=== PATIENT | male | born 1955 | race Caucasian/White ===

== ENCOUNTER 2017-09-02 09:30 | Day surgery (SDC) | payer OTHER ==
[~2017-09-02 09:30] MED LIST: CEFAZOLIN 2 GM/50 ML (PMX) 50 ML IVPB
[2017-09-02] MEDS ORDERED: ONDANSETRON 4 MG INJ (10:42)
[2017-09-02] MEDS ORDERED: KETOROLAC 30 MG INJ (10:43)
[2017-09-02] MEDS ORDERED: DEXAMETHASONE 4 MG/ML 1 ML INJ (10:43)
[2017-09-02] MEDS ORDERED: METOCLOPRAMIDE 10 MG INJ (10:43)
[2017-09-02] MEDS ORDERED: ROCURONIUM 50 MG INJ (10:54)
[2017-09-02] MEDS ORDERED: PROPOFOL 20 ML (10:54)
[2017-09-02] MEDS ORDERED: FENTAnyl 50 MCG/ML VIAL (10:55)
[2017-09-02] MEDS ORDERED: MIDAZOLAM 1 MG/ML 2 ML INJ (10:55)
[2017-09-02] MEDS ORDERED: DIPHENHYDRAMINE 50 MG INJ IV (11:00)
[2017-09-02] MEDS ORDERED: HYDROmorphONE (0.2 MG/ML) 10ML SYG IV ×3 (11:00)
[2017-09-02] MEDS ORDERED: LABETALOL HCL 20MG INJ IV (11:00)
[2017-09-02] MEDS ORDERED: EPHEDrine SULFATE 50 MG/5 ML SYG IV (11:00)
[2017-09-02] MEDS ORDERED: MEPERIDINE 25 MG INJ IV (11:00)
[2017-09-02] MEDS ORDERED: hydrALAzine 20 MG INJ IV (11:00)
[2017-09-02] MEDS ORDERED: ONDANSETRON 4 MG INJ IV (11:00)
[2017-09-02] MEDS ORDERED: FENTAnyl 50 MCG/ML VIAL IV ×3 (11:00)
[2017-09-02] MEDS ORDERED: METOCLOPRAMIDE 10 MG INJ IV (11:00)
[2017-09-02] MEDS ORDERED: OXYCODONE/ACETAMINOPHEN (5/325) TAB PO (11:00)
[2017-09-02] MEDS ORDERED: FUROSEMIDE 20 MG INJ (11:09)
[2017-09-02] MEDS ORDERED: HYDROCODONE/APAP (5/325) TAB PO (11:30)
== END 2017-09-02 14:35 | disposition home or self-care (01) ==
LOC: SDS 09:30
DX: N21.0 Calculus in bladder (principal); E11.9 Type 2 diabetes mellitus without complications; I10 Essential (primary) hypertension; E78.5 Hyperlipidemia, unspecified; E66.9 Obesity, unspecified; Z68.31 Body mass index [BMI] 31.0-31.9, adult
CPT/HCPCS: 52318; 82962; 88300; J1940

== ENCOUNTER 2018-02-24 06:33 | Inpatient (IN) | payer OTHER ==
[2018-02-24] MEDS ORDERED: FENTAnyl 50 MCG/ML VIAL IV ×3 (08:30)
[2018-02-24] MEDS ORDERED: METOCLOPRAMIDE 10 MG INJ IV (08:30)
[2018-02-24] MEDS ORDERED: ALBUTEROL 0.083% (NEB) 2.5 MG/3 ML AMP HHN (08:30)
[2018-02-24] MEDS ORDERED: HYDROmorphONE 1 MG/5 ML IV SYRINGE IV (08:30)
[2018-02-24] MEDS ORDERED: DIPHENHYDRAMINE 50 MG INJ IV (08:30)
[2018-02-24] MEDS ORDERED: MEPERIDINE 25 MG INJ IV (08:30)
[2018-02-24] MEDS ORDERED: FENTAnyl 50 MCG/ML VIAL ×2 (09:18→11:46)
[2018-02-24] MEDS ORDERED: ROCURONIUM 50 MG INJ (09:35)
[2018-02-24] MEDS ORDERED: SUGAMMADEX SODIUM 200 MG/2 ML VIAL IV ×2 (09:35→13:56)
[2018-02-24] MEDS ORDERED: SUCCINYLCHOLINE CHLORIDE 100 MG/5 ML SYG IV (09:35)
[2018-02-24] MEDS ORDERED: LIDOCAINE 100 MG SYRINGE (09:35)
[2018-02-24] MEDS ORDERED: CEFAZOLIN 1 GM INJ (09:35)
[2018-02-24] MEDS ORDERED: PROPOFOL 20 ML (09:35)
[2018-02-24] MEDS: HYDROmorphONE 1 MG/5 ML IV SYRINGE IV ×2 (11:15→12:21)
[2018-02-24] MEDS: ONDANSETRON 4 MG INJ IV ×2 (11:15→15:49)
[2018-02-24] MEDS ORDERED: CEFTRIAXONE 1 GM INJ IVPB (11:30)
[2018-02-24] MEDS ORDERED: HYDROCODONE/APAP (5/325) TAB PO (11:30)
[2018-02-24] MEDS ORDERED: GLUCOSE GEL 15 GRAM TUBE PO ×2 (12:30)
[2018-02-24] MEDS ORDERED: GLUCOSE GEL 15 GRAM TUBE BUCCAL (12:30)
[2018-02-24] MEDS ORDERED: DEXTROSE 50% 50 ML SYRINGE IV ×2 (12:30)
[2018-02-24] MEDS ORDERED: GLUCAGON 1 MG INJ IM (12:30)
[2018-02-24] MEDS: CEFTRIAXONE 1 GM/NS 50 ML IVPB (12:40)
[2018-02-24 14:50] LABS: HEMOGLOBIN A1C 6.3 % (0-5.9)
[2018-02-24] MEDS: SOD CHLORIDE 0.45% 1,000 ML IV (15:48)
[2018-02-24] MEDS: LISINOPRIL 10 MG TAB PO (15:49)
[2018-02-24] MEDS: GABAPENTIN 100 MG CAP PO ×2 (15:49→20:39)
[2018-02-24] MEDS: DOCUSATE SODIUM 100 MG CAP PO ×2 (15:49→20:39)
[2018-02-24] MEDS: INSULIN ASPART [NOVOLOG] 3 ML PEN SC ×2 (17:43→20:43)
[2018-02-25] MEDS: ACCU-CHEK XX (01:33)
[2018-02-25] MEDS: ACETAMINOPHEN 325 MG TAB PO ×2 (03:05→20:13)
[2018-02-25 06:03] LABS: ADD MAN DIFF? NO
[2018-02-25 06:05] LABS: WHITE BLOOD COUNT 28.7 10^3/ul (4.8-10.8)
[2018-02-25 06:05] LABS: ABNORMAL IP MESSAGE 1; BASOPHIL # 0.1 10^3/ul (0.0-0.1); BASOPHILS % 0.3 % (0.0-2.0); HEMATOCRIT 42.4 % (42.0-52.0); HEMOGLOBIN 13.2 g/dl (14.0-18.0); LYMPHOCYTES # 0.9 10^3/ul (0.8-2.9); LYMPHOCYTES % 3.2 % (15.0-51.0); MEAN CORPUSCULAR HEMOGLOBIN 28.7 pg (29.0-33.0); MEAN CORPUSCULAR HGB CONC 31.1 g/dl (32.0-37.0); MEAN CORPUSCULAR VOLUME 92.2 fl (82.0-101.0); MONOCYTE # 0.5 10^3/ul (0.3-0.9); MONOCYTES % 1.6 % (0.0-11.0); NEUTROPHILS % 94.2 % (39.0-77.0); PLATELET COUNT 266 10^3/UL (140-415); POSITIVE DIFF @See below; RED CELL DISTRIBUTION WIDTH 13.4 % (11.5-14.5)
[2018-02-25] MEDS: INSULIN ASPART [NOVOLOG] 3 ML PEN SC ×4 (07:58→20:20)
[2018-02-25] MEDS: SOD CHLORIDE 0.45% 1,000 ML IV (08:54)
[2018-02-25] MEDS: DOCUSATE SODIUM 100 MG CAP PO ×2 (08:54→20:12)
[2018-02-25] MEDS: LISINOPRIL 10 MG TAB PO (08:54)
[2018-02-25] MEDS: GABAPENTIN 100 MG CAP PO ×3 (08:54→20:13)
[2018-02-25 11:40] LABS: ANION GAP 14 (8-16); BLOOD UREA NITROGEN 25 mg/dl (7-20); CALCIUM 7.7 mg/dl (8.4-10.2); CARBON DIOXIDE 22 mmol/L (21-31); CHLORIDE 108 mmol/L (97-110); CREATININE 1.22 mg/dl (0.61-1.24); GLUCOSE 155 mg/dl (70-220); POTASSIUM 3.9 mmol/L (3.5-5.1); SODIUM 140 mmol/L (135-144)
[2018-02-25] MEDS: CEFTRIAXONE 1 GM/NS 50 ML IVPB (12:27)
[2018-02-25] MEDS: LEVOFLOXACIN 750MG/D5W (PMX) 150 ML IVPB (23:10)
[2018-02-25 23:41] LABS: LACTIC ACID 1.3 mmol/L (0.5-2.0)
[2018-02-26] MEDS: ACCU-CHEK XX (02:00)
[2018-02-26] MEDS: SOD CHLORIDE 0.45% 1,000 ML IV ×2 (03:30→06:03)
[2018-02-26 05:55] LABS: ADD MAN DIFF? NO
[2018-02-26 06:15] LABS: WHITE BLOOD COUNT 11.7 10^3/ul (4.8-10.8)
[2018-02-26 06:15] LABS: BASOPHILS % 0.3 % (0.0-2.0); EOSINOPHILS # 0.1 10^3/ul (0.0-0.5); EOSINOPHILS % 0.4 % (0.0-7.0); HEMATOCRIT 36.5 % (42.0-52.0); HEMOGLOBIN 11.8 g/dl (14.0-18.0); LYMPHOCYTES # 0.9 10^3/ul (0.8-2.9); LYMPHOCYTES % 7.9 % (15.0-51.0); MEAN CORPUSCULAR HEMOGLOBIN 28.9 pg (29.0-33.0); MEAN CORPUSCULAR HGB CONC 32.3 g/dl (32.0-37.0); MEAN CORPUSCULAR VOLUME 89.2 fl (82.0-101.0); MEAN PLATELET VOLUME 10.3 fl (7.4-10.4); MONOCYTE # 0.6 10^3/ul (0.3-0.9); MONOCYTES % 5.2 % (0.0-11.0); NEUTROPHILS % 85.5 % (39.0-77.0); PLATELET COUNT 165 10^3/UL (140-415); RED BLOOD COUNT 4.09 10^6/ul (4.70-6.10); RED CELL DISTRIBUTION WIDTH 13.4 % (11.5-14.5)
[2018-02-26 06:26] LABS: ANION GAP 12 (8-16); BLOOD UREA NITROGEN 24 mg/dl (7-20); CALCIUM 8.1 mg/dl (8.4-10.2); CARBON DIOXIDE 23 mmol/L (21-31); CHLORIDE 110 mmol/L (97-110); CREATININE 1.09 mg/dl (0.61-1.24); GLUCOSE 103 mg/dl (70-220); POTASSIUM 4.5 mmol/L (3.5-5.1); SODIUM 140 mmol/L (135-144)
[2018-02-26] MEDS: ACETAMINOPHEN 325 MG TAB PO ×2 (06:37→19:48)
[2018-02-26] MEDS: INSULIN ASPART [NOVOLOG] 3 ML PEN SC ×4 (08:15→21:00)
[2018-02-26] MEDS: DOCUSATE SODIUM 100 MG CAP PO ×2 (08:41→21:00)
[2018-02-26] MEDS: LISINOPRIL 10 MG TAB PO (08:42)
[2018-02-26] MEDS: GABAPENTIN 100 MG CAP PO ×3 (08:42→20:39)
[2018-02-26] MEDS: CEFTRIAXONE 1 GM/NS 50 ML IVPB (11:59)
[2018-02-26] MEDS: ONDANSETRON 4 MG INJ IV (22:05)
[2018-02-26] MEDS: ZOLPIDEM 5 MG TAB PO (22:05)
[2018-02-27] MEDS: SOD CHLORIDE 0.45% 1,000 ML IV ×3 (01:23→22:50)
[2018-02-27] MEDS: ACCU-CHEK XX (02:00)
[2018-02-27] MEDS: INSULIN ASPART [NOVOLOG] 3 ML PEN SC ×4 (08:34→20:38)
[2018-02-27] MEDS: LISINOPRIL 10 MG TAB PO (08:35)
[2018-02-27] MEDS: DOCUSATE SODIUM 100 MG CAP PO ×2 (08:35→20:32)
[2018-02-27] MEDS: GABAPENTIN 100 MG CAP PO ×3 (08:35→20:32)
[2018-02-27] MEDS: CEFTRIAXONE 1 GM/NS 50 ML IVPB (12:35)
[2018-02-28] MEDS: ACCU-CHEK XX (02:00)
[2018-02-28] MEDS: GABAPENTIN 100 MG CAP PO ×3 (08:11→21:20)
[2018-02-28] MEDS: INSULIN ASPART [NOVOLOG] 3 ML PEN SC ×4 (08:11→21:00)
[2018-02-28] MEDS: LISINOPRIL 10 MG TAB PO (08:11)
[2018-02-28] MEDS: DOCUSATE SODIUM 100 MG CAP PO ×2 (08:11→21:20)
[2018-02-28] MEDS: CEFTRIAXONE 1 GM/NS 50 ML IVPB (11:09)
[2018-02-28 11:25] LABS: ADD MAN DIFF? NO
[2018-02-28 11:38] LABS: WHITE BLOOD COUNT 8.9 10^3/ul (4.8-10.8)
[2018-02-28 11:38] LABS: BASOPHILS % 0.3 % (0.0-2.0); EOSINOPHILS # 0.2 10^3/ul (0.0-0.5); EOSINOPHILS % 1.7 % (0.0-7.0); HEMATOCRIT 38.5 % (42.0-52.0); HEMOGLOBIN 12.3 g/dl (14.0-18.0); LYMPHOCYTES # 2.2 10^3/ul (0.8-2.9); MEAN CORPUSCULAR HEMOGLOBIN 28.1 pg (29.0-33.0); MEAN CORPUSCULAR HGB CONC 31.9 g/dl (32.0-37.0); MEAN CORPUSCULAR VOLUME 87.9 fl (82.0-101.0); MONOCYTE # 0.5 10^3/ul (0.3-0.9); NEUTROPHIL # 6.1 10^3/ul (1.6-7.5); NEUTROPHILS % 68.6 % (39.0-77.0); PLATELET COUNT 231 10^3/UL (140-415); RED BLOOD COUNT 4.38 10^6/ul (4.70-6.10); RED CELL DISTRIBUTION WIDTH 13.6 % (11.5-14.5)
[2018-02-28 11:49] LABS: ANION GAP 17 (8-16); BLOOD UREA NITROGEN 24 mg/dl (7-20); CALCIUM 9.1 mg/dl (8.4-10.2); CARBON DIOXIDE 28 mmol/L (21-31); CHLORIDE 104 mmol/L (97-110); CREATININE 1.06 mg/dl (0.61-1.24); GLUCOSE 156 mg/dl (70-220); POTASSIUM 4.1 mmol/L (3.5-5.1); SODIUM 145 mmol/L (135-144)
[2018-02-28] MEDS: OXYBUTYNIN 5 MG TAB PO (21:20)
[2018-03-01] MEDS: ACCU-CHEK XX (02:00)
[2018-03-01 06:23] LABS: ADD MAN DIFF? NO
[2018-03-01 06:32] LABS: BASOPHILS % 0.3 % (0.0-2.0); EOSINOPHILS # 0.2 10^3/ul (0.0-0.5); EOSINOPHILS % 2.8 % (0.0-7.0); HEMATOCRIT 36.8 % (42.0-52.0); HEMOGLOBIN 11.9 g/dl (14.0-18.0); LYMPHOCYTES # 2.6 10^3/ul (0.8-2.9); LYMPHOCYTES % 30.5 % (15.0-51.0); MEAN CORPUSCULAR HEMOGLOBIN 28.3 pg (29.0-33.0); MEAN CORPUSCULAR HGB CONC 32.3 g/dl (32.0-37.0); MEAN CORPUSCULAR VOLUME 87.6 fl (82.0-101.0); MEAN PLATELET VOLUME 9.8 fl (7.4-10.4); MONOCYTE # 0.7 10^3/ul (0.3-0.9); MONOCYTES % 7.8 % (0.0-11.0); NEUTROPHILS % 58.1 % (39.0-77.0); PLATELET COUNT 227 10^3/UL (140-415); RED CELL DISTRIBUTION WIDTH 13.5 % (11.5-14.5)
[2018-03-01 06:32] LABS: WHITE BLOOD COUNT 8.6 10^3/ul (4.8-10.8)
[2018-03-01 06:57] LABS: ANION GAP 15 (8-16); BLOOD UREA NITROGEN 25 mg/dl (7-20); CALCIUM 8.9 mg/dl (8.4-10.2); CARBON DIOXIDE 25 mmol/L (21-31); CHLORIDE 108 mmol/L (97-110); CREATININE 0.98 mg/dl (0.61-1.24); GLUCOSE 116 mg/dl (70-220); POTASSIUM 4.2 mmol/L (3.5-5.1); SODIUM 144 mmol/L (135-144)
[2018-03-01] MEDS: INSULIN ASPART [NOVOLOG] 3 ML PEN SC (07:48)
[2018-03-01] MEDS: GABAPENTIN 100 MG CAP PO (08:26)
[2018-03-01] MEDS: DOCUSATE SODIUM 100 MG CAP PO (08:27)
[2018-03-01] MEDS: OXYBUTYNIN 5 MG TAB PO (08:27)
[2018-03-01] MEDS: LISINOPRIL 10 MG TAB PO (08:27)
== END 2018-03-01 10:55 | disposition home or self-care (01) | DRG 713 ==
LOC: SDS 06:33 → MS2 11:14
PROVIDERS: Internal Medicine
PROC: 0VT08ZZ Resection of Prostate, Via Natural or Artificial Opening Endoscopic (ICD-10-PCS; principal; 2018-02-24 09:00)
DX: N40.0 Benign prostatic hyperplasia without lower urinary tract symptoms (principal); N39.0 Urinary tract infection, site not specified; R45.1 Restlessness and agitation; E11.9 Type 2 diabetes mellitus without complications; N32.3 Diverticulum of bladder; I10 Essential (primary) hypertension
CPT/HCPCS: 71045; 80048; 82962; 83036; 83605; 85025; 86850; 86900; 86901; 87040; 87086; 88305; 88342